=== PATIENT | male | born 1970 | race Caucasian/White ===

== ENCOUNTER 2022-02-17 06:20 | Day surgery (SDC) | payer BC ==
[2022-02-17] MEDS ORDERED: Lactated Ringers 1,000 ML IV SCH (06:45)
[2022-02-17] MEDS ORDERED: Propofol 200 MG/20 ML SDV ONE (07:20)
[2022-02-17] MEDS ORDERED: fentaNYL 100 MCG/2 ML SDV ONE (07:20)
[2022-02-17] MEDS ORDERED: Midazolam 1 MG/ML 2 ML SDV ONE (07:20)
== END 2022-02-17 09:05 | disposition home or self-care (01) ==
LOC: JP.SDS 06:20
PROVIDERS: ATTEND Student in an Organized Health Care Education/Training Program
DX: Z12.11 Encounter for screening for malignant neoplasm of colon (principal)
CPT/HCPCS: J2250; J2704; J3010; J7120